=== PATIENT | male | born 1950 | race Caucasian/White ===

== ENCOUNTER 2016-10-31 23:34 | Inpatient (IN) | payer MEDICARE, OTHER ==
[~2016-10-31] VITALS: Ht 193 cm; Wt 126.9 kg
[2016-10-31 23:34] VITALS: O2SAT 100
[2016-10-31] MEDS ORDERED: ceFAZolin 2 GM PREMIX 50 ML ONE (23:41)
[2016-10-31] MEDS ORDERED: MORPHINE SULFATE 8 MG/ML INJ ONE (23:41)
[2016-10-31] MEDS ORDERED: ONDANSETRON HCL 4 MG/2 ML VIAL ONE (23:42)
[2016-10-31] MEDS ORDERED: ceFAZolin 2 GM PREMIX 50 ML IV STA (23:45)
[2016-10-31 23:57] LABS: I-STAT POTASSIUM 3.8 MMOL/L (3.5-4.9); I-STAT SODIUM 141 MMOL/L (138-146)
[2016-10-31 23:58] LABS: AUTOMATED NEUTROPHIL # 15.9 TH/MM3 (1.8-7.7); BASOPHIL # 0.2 TH/MM3 (0-0.2); BASOPHIL % 0.7 % (0.0-2.0); EOSINOPHIL # 0.4 TH/MM3 (0-0.4); EOSINOPHIL % 1.7 % (0.0-4.0); HEMATOCRIT 45.2 % (39.0-51.0); HEMO FLAGS DIFF FINAL; LYMPH % 21.7 % (9.0-44.0); MEAN CELL VOLUME 85.5 FL (80.0-100.0); MEAN CORPUSCULAR HGB CONC 32.8 % (32.0-36.0); MONO % 6.7 % (0.0-8.0); NEUT % 69.2 % (16.0-70.0); PLATELET COUNT 231 TH/MM3 (150-450); RED BLOOD COUNT 5.29 MIL/MM3 (4.50-5.90)
[2016-10-31] MEDS ORDERED: DIPHTH/TETANUS/ACEL PERTUSSIS (BOOSTER) 0.5 ML VIAL/PFS IM ONE (23:58)
[2016-11-01] VITALS (12 sets, daily range): BP systolic 92–152; BP diastolic 54–95; PULSE 75–97; RESP 12–26; TEMP 97.7–98.8; O2SAT 89–100
[2016-11-01] MEDS ORDERED: Post-op Orders (for Pharmacy) MISC XX ONE
[2016-11-01] MEDS ORDERED: MORPHINE SULFATE 4 MG/ML INJ IV PRN
[2016-11-01] MEDS ORDERED: SODIUM CHLORIDE 0.9% FLUSH 10 ML FLUSH IV FLUSH PRN
[2016-11-01] MEDS ORDERED: NALOXONE HCL 0.4 MG/ML AMP IV PRN
[2016-11-01] MEDS ORDERED: ONDANSETRON HCL 4 MG/2 ML VIAL IV PRN
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
[2016-11-01 00:08] LABS: APTT (PATIENT) 24.2 SEC (24.3-30.1); INTERNATIONAL NORMALIZED RATIO 0.9 RATIO; PROTHROMBIN TIME - PATIENT 10.2 SEC (9.8-11.6)
[2016-11-01] MEDS ORDERED: IOHEXOL 350 MG/ML 10 ML VIAL (for RAD DIAG) IV ONE (00:13)
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
[2016-11-01] MEDS ORDERED: LIDOCAINE 1%/EPINEPHrine 1:100,000 SOLN 20 ML VIAL INFIL ONE (01:00)
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
[2016-11-01 04:27] LABS: AUTOMATED NEUTROPHIL # 17.5 TH/MM3 (1.8-7.7); BASOPHIL % 0.2 % (0.0-2.0); EOSINOPHIL % 0.1 % (0.0-4.0); HEMATOCRIT 41.4 % (39.0-51.0); HEMO FLAGS DIFF FINAL; LYMPH % 6.4 % (9.0-44.0); LYMPHOCYTE # 1.3 TH/MM3 (1.0-4.8); MEAN CELL VOLUME 86.9 FL (80.0-100.0); MEAN CORPUSCULAR HEMOGLOBIN 27.8 PG (27.0-34.0); MONO % 10.1 % (0.0-8.0); NEUT % 83.2 % (16.0-70.0); PLATELET COUNT 214 TH/MM3 (150-450); RED BLOOD COUNT 4.77 MIL/MM3 (4.50-5.90); WHITE BLOOD COUNT 21.1 TH/MM3 (4.0-11.0)
[2016-11-01 05:01] LABS: BICARBONATE 24.8 MEQ/L (21.0-32.0); POTASSIUM 3.7 MEQ/L (3.5-5.1)
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
[2016-11-01] MEDS ORDERED: GLUCAGON 1 MG/ML VIAL OTHER PRN (08:00)
[2016-11-01] MEDS ORDERED: DEXTROSE 50% IN WATER 50 ML VIAL(D50) IV PUSH PRN (08:00)
[2016-11-01] MEDS: DOCUSATE SODIUM 100 MG CAP PO SCH ×2 (08:44→20:48)
[2016-11-01] MEDS: SODIUM CHLORIDE 0.9% FLUSH 10 ML FLUSH IV FLUSH SCH ×2 (08:44→20:48)
[2016-11-01] MEDS: LIDOCAINE HCL 5% PATCH T-DERMAL SCH (08:45)
[2016-11-01] MEDS: BACITRACIN TOP OINT 15 GM TUBE TOPICAL SCH ×2 (08:45→20:49)
[2016-11-01] MEDS: METHOCARBAMOL 500 MG TAB PO SCH ×3 (08:50→20:46)
[2016-11-01] MEDS: INSULIN NovoLIN REGULAR SUPPLEMENTAL SCALE SQ SCH ×3 (11:00→20:48)
--- NOTE | 2016-11-01 15:03 | PD.ORT.PN ---
Subjective Subjective Remarks intubated Objective Vitals Vital Signs Date Time Temp Pulse Resp B/P Pulse Ox O2 Delivery O2 Flow Rate FiO2 11/01/16 14:00 77 11/01/16 12:00 89 11/01/16 10:00 89 11/01/16 08:00 96 Nasal Cannula 2.00 Humidified 11/01/16 08:00 98.0 91 12 132/57 96 11/01/16 08:00 91 11/01/16 06:00 89 11/01/16 04:00 75 11/01/16 04:00 98.1 75 16 108/56 100 11/01/16 04:00 100 Nasal Cannula 4.00 Humidified 11/01/16 03:00 94 Nasal Cannula 4.00 Humidified 11/01/16 02:00 97.7 86 19 92/54 89 11/01/16 02:00 86 11/01/16 02:00 89 Nasal Cannula 6.00 Humidified 11/01/16 01:50 92 Nasal Cannula 2.00 10/31/16 23:34 100 21 10/31/16 23:34 100 21 I/O 10/31/16 10/31/16 10/31/16 11/01/16 11/01/16 11/01/16 07:00 15:00 23:00 07:00 15:00 23:00 Intake Total 737 ml Balance 737 ml Intake Oral 480 ml IV Total 257 ml Result Diagram: 11/01/16 0410 11/01/16 0410 Other Results Laboratory Tests Test 10/31/16 23:40 Prothrombin Time 10.2 SEC (9.8-11.6) Prothromb Time International 0.9 RATIO Ratio Imaging Last 24 hours Impressions Pelvis X-Ray 10/31/162336 Signed Impressions: Service Date/Time: Monday, October 31, 2016 23:30 - CONCLUSION: Possible left iliac wing fracture. CT scan is recommended for further evaluation if clinically indicated. Elieser Snow MD Maxillofacial CT 10/31/162336 Signed Impressions: Service Date/Time: Monday, October 31, 2016 23:54 - CONCLUSION: 1. There is no evidence of acute fracture. Elieser Snow MD Head CT 10/31/162336 Signed Impressions: Service Date/Time: Monday, October 31, 2016 23:54 - CONCLUSION: 1. No evidence of acute intracranial pathology. No masses are identified. Elieser Snow MD Chest X-Ray 10/31/162336 Signed Impressions: Service Date/Time: Monday, October 31, 2016 23:30 - CONCLUSION: 1. There is no evidence of pneumothorax. 2. Fracture left scapula left clavicle and multiple left ribs Elieser Snow MD Chest CT 10/31/162336 Signed Impressions: Service Date/Time: Tuesday, November 01, 2016 00:04 - CONCLUSION: 1. Small left pneumothorax 2. Left rib fracture, left scapula and left clavicle fracture Elieser Snow MD Cervical Spine CT 10/31/162336 Signed Impressions: Service Date/Time: Monday, October 31, 2016 23:54 - CONCLUSION: 1. Moderate degenerative changes as described above. There is no evidence of acute fracture. Elieser Snow MD Abdomen/Pelvis CT 10/31/162336 Signed Impressions: Service Date/Time: Tuesday, November 01, 2016 00:04 - CONCLUSION: 1. No evidence of acute abdominal or pelvic process. No masses are identified. Elieser Snow MD Objective Remarks intubated RLE: exfix in place. pin sites clean. toes wwp Assessment & Plan Assessment and Plan POD 2- right Hugo Deutsch Jr., MD November 01, 2016 15:03
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
[2016-11-01] MEDS: SODIUM CHLOR 0.9% 1000 ML INJ 1,000 ML IV SCH ×2 (19:59→22:27)
[2016-11-01] MEDS: MAGNESIUM HYDROXIDE SUSP 30 ML CUP PO SCH (20:48)
[2016-11-01] MEDS: REMOVE OLD LIDOCAINE PATCH T-DERMAL SCH (21:00)
[2016-11-01] MEDS: oxyCODONE/ACETAMINOPHEN 5 MG/325 MG TAB PO PRN (21:12)
--- NOTE | 2016-11-01 22:49 | EKG ---
Date Performed: 11/01/2016 Time Performed: 00:12:36 PTAGE: 89 years EKG: Sinus rhythm INCOMPLETE RIGHT BUNDLE BRANCH BLOCK LEFT ANTERIOR FASCICULAR BLOCK POSSIBLE LATERAL MYOCARDIAL INFA RCTION ABNORMAL ECG NO PREVIOUS TRACING DOCTOR: Andreas Aiken Interpretating Date/Time 11/01/2016 22:47:14
[2016-11-01] MEDS: PANTOPRAZOLE SODIUM 40 MG VIAL IV SCH ×2 (23:50)
[2016-11-02 04:15] VITALS: BP 163/95; PULSE 80; RESP 18; TEMP 96.5; O2SAT 94
[2016-11-02] MEDS: METHOCARBAMOL 500 MG TAB PO SCH ×3 (04:24→20:23)
[2016-11-02] MEDS ORDERED: [UNRECOGNIZED DRUG - CODE] (06:04)
[2016-11-02] MEDS ORDERED: DOCU1CAP39 PO (06:04)
[2016-11-02] MEDS ORDERED: MILKSUS PO (06:04)
[2016-11-02] MEDS: INSULIN NovoLIN REGULAR SUPPLEMENTAL SCALE SQ SCH ×4 (06:26→20:24)
[2016-11-02 07:35] VITALS: BP 144/78; PULSE 87; RESP 18; TEMP 96.7; O2SAT 96
[2016-11-02] MEDS: SODIUM CHLORIDE 0.9% FLUSH 10 ML FLUSH IV FLUSH SCH ×2 (08:13→20:24)
[2016-11-02] MEDS: LIDOCAINE HCL 5% PATCH T-DERMAL SCH (08:14)
[2016-11-02] MEDS: DOCUSATE SODIUM 100 MG CAP PO SCH ×2 (08:14→20:23)
[2016-11-02] MEDS: BACITRACIN TOP OINT 15 GM TUBE TOPICAL SCH ×2 (08:18→20:24)
[2016-11-02 08:43] LABS: AUTOMATED NEUTROPHIL # 7.7 TH/MM3 (1.8-7.7); BASOPHIL % 0.2 % (0.0-2.0); EOSINOPHIL % 0.5 % (0.0-4.0); HEMATOCRIT 33.3 % (39.0-51.0); HEMO FLAGS DIFF FINAL; LYMPH % 12.5 % (9.0-44.0); LYMPHOCYTE # 1.3 TH/MM3 (1.0-4.8); MEAN CELL VOLUME 84.7 FL (80.0-100.0); MEAN CORPUSCULAR HEMOGLOBIN 28.8 PG (27.0-34.0); MEAN CORPUSCULAR HGB CONC 33.9 % (32.0-36.0); MONO % 12.1 % (0.0-8.0); NEUT % 74.7 % (16.0-70.0); PLATELET COUNT 158 TH/MM3 (150-450); RED BLOOD COUNT 3.93 MIL/MM3 (4.50-5.90); RED CELL DISTRIBUTION WIDTH 14.4 % (11.6-17.2); WHITE BLOOD COUNT 10.3 TH/MM3 (4.0-11.0)
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
[2016-11-02 09:22] LABS: ALKALINE PHOSPHATASE 159 U/L (45-117); ALT (GPT) 24 U/L (12-78); ANION GAP 10 MEQ/L (5-15); AST (GOT) 31 U/L (15-37); BICARBONATE 24.2 MEQ/L (21.0-32.0); BLOOD UREA NITROGEN 33 MG/DL (7-18); CHLORIDE 103 MEQ/L (98-107); GLOMERULAR FILTRATION RATE 33 ML/MIN (>89); MAGNESIUM 2.2 MG/DL (1.5-2.5); POTASSIUM 4.4 MEQ/L (3.5-5.1); SODIUM (NA) 137 MEQ/L (136-145); TOTAL BILIRUBIN ADULT 1.2 MG/DL (0.2-1.0)
[2016-11-02 09:23] VITALS: O2SAT 98
[2016-11-02] MEDS ORDERED: OXYC1TAB63 PO (10:39)
[2016-11-02] MEDS ORDERED: SODIUM CHLOR 0.9% 1000 ML INJ 1,000 ML IV ONE (11:09)
[2016-11-02 12:00] VITALS: BP 138/70; PULSE 82; RESP 18; TEMP 97; O2SAT 96
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
[2016-11-02] MEDS ORDERED: PERC5TAB12 PO (13:12)
[2016-11-02] MEDS: SODIUM CHLOR 0.9% 1000 ML INJ 1,000 ML IV SCH ×3 (13:45→23:12)
[2016-11-02] MEDS: oxyCODONE/ACETAMINOPHEN 5 MG/325 MG TAB PO PRN (15:17)
[2016-11-02 16:00] VITALS: BP 127/72; PULSE 99; RESP 18; TEMP 97.3; O2SAT 94
[2016-11-02] MEDS: MAGNESIUM HYDROXIDE SUSP 30 ML CUP PO SCH (20:23)
[2016-11-02] MEDS: REMOVE OLD LIDOCAINE PATCH T-DERMAL SCH (20:24)
[2016-11-02 20:40] VITALS: BP 138/78; PULSE 84; RESP 17; TEMP 97.5; O2SAT 94
[2016-11-02] MEDS: PANTOPRAZOLE SODIUM 40 MG VIAL IV SCH (23:12)
[2016-11-02 23:55] LABS: BLOOD, URINE NEG (NEG); COMMENT (UR) CULT NOT INDICATED; CULTURE IF INDICATED CULT NOT INDICATED; GLUCOSE,URINE TRACE mg/dL (NEG); HYALINE CAST, URINE 1 /lpf (RARE); KETONE, URINE NEG (NEG); MUCUS URINE FEW /lpf (OCC); NITRITE,URINE NEG (NEG); PH, URINE 5.5 (5.0-8.5); SQUAMOUS EPITHELIAL CELL URINE <1 /hpf (0-5); URINE COLOR YELLOW (YELLW/STRAW)
[2016-11-02 23:56] LABS: AMPHETAMINE, URINE NEG (NEG); BARBITURATES, URINE NEG (NEG); COCAINE, URINE NEG (NEG)
[2016-11-03 00:50] VITALS: BP 154/80; PULSE 93; RESP 18; TEMP 98.1; O2SAT 93
[2016-11-03 04:00] VITALS: BP 146/79; PULSE 95; RESP 18; TEMP 98.2; O2SAT 92
[2016-11-03 05:51] LABS: HEMATOCRIT 28.2 % (39.0-51.0); MEAN CELL VOLUME 84.1 FL (80.0-100.0); MEAN CORPUSCULAR HEMOGLOBIN 30.1 PG (27.0-34.0); MEAN CORPUSCULAR HGB CONC 35.8 % (32.0-36.0); PLATELET COUNT 153 TH/MM3 (150-450); RED BLOOD COUNT 3.36 MIL/MM3 (4.50-5.90); RED CELL DISTRIBUTION WIDTH 14.2 % (11.6-17.2); REVIEW FLAG FINAL; WHITE BLOOD COUNT 9.5 TH/MM3 (4.0-11.0)
[2016-11-03] MEDS: METHOCARBAMOL 500 MG TAB PO SCH ×3 (06:08→23:00)
[2016-11-03 06:14] LABS: BICARBONATE 24.2 MEQ/L (21.0-32.0); MAGNESIUM 2.2 MG/DL (1.5-2.5); POTASSIUM 4.1 MEQ/L (3.5-5.1)
[2016-11-03] MEDS: INSULIN NovoLIN REGULAR SUPPLEMENTAL SCALE SQ SCH (07:00)
--- NOTE | 2016-11-03 07:03 | RADRPT ---
EXAM DATE/TIME: 11/03/2016 06:22 [facility] COMPARISON: CHEST SINGLE AP, November 02, 2016, 8:30. INDICATIONS : Difficulty breathing. MEDICAL HISTORY : None. SURGICAL HISTORY : None. ENCOUNTER: Initial ACUITY: 4 - 6 days PAIN SCORE: 10/10 LOCATION: Bilateral chest FINDINGS: The cardiac silhouette is enlarged in transverse diameter. The lungs are free of acute parenchymal op acity. No effusions are identified. Osseous structures are intact. CONCLUSION: Cardiomegaly. No acute cardiopulmonary disease. Elieser Snow MD on November 03, 2016 at 7:01 Board Certified Radiologist. This report was verified electronically.
[2016-11-03] MEDS: oxyCODONE/ACETAMINOPHEN 5 MG/325 MG TAB PO PRN (07:43)
[2016-11-03 08:00] VITALS: BP 164/87; PULSE 88; RESP 18; TEMP 98.3; O2SAT 95
[2016-11-03] MEDS: BACITRACIN TOP OINT 15 GM TUBE TOPICAL SCH ×2 (09:00→23:01)
[2016-11-03] MEDS: LIDOCAINE HCL 5% PATCH T-DERMAL SCH (09:00)
[2016-11-03] MEDS: DOCUSATE SODIUM 100 MG CAP PO SCH ×2 (09:00→20:04)
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
[2016-11-03 12:00] VITALS: BP 151/90; PULSE 76; RESP 18; TEMP 97.8; O2SAT 97
[2016-11-03 16:00] VITALS: BP 174/87; PULSE 71; RESP 18; TEMP 97; O2SAT 97
[2016-11-03] MEDS: REMOVE OLD LIDOCAINE PATCH T-DERMAL SCH (19:26)
[2016-11-03] MEDS: SODIUM CHLORIDE 0.9% FLUSH 10 ML FLUSH IV FLUSH SCH (20:04)
[2016-11-03] MEDS: MAGNESIUM HYDROXIDE SUSP 30 ML CUP PO SCH (20:04)
[2016-11-03 20:58] VITALS: BP 167/90; PULSE 73; RESP 18; TEMP 97.9; O2SAT 93
[2016-11-03] MEDS: SODIUM CHLOR 0.9% 1000 ML INJ 1,000 ML IV SCH (21:59)
[2016-11-03] MEDS: PANTOPRAZOLE SODIUM 40 MG VIAL IV SCH (23:00)
[2016-11-04] VITALS (7 sets, daily range): BP systolic 156–184; BP diastolic 72–95; PULSE 73–94; RESP 17–22; TEMP 96.9–99.7; O2SAT 92–99
[2016-11-04] MEDS: METHOCARBAMOL 500 MG TAB PO SCH ×3 (06:09→22:16)
[2016-11-04] MEDS: SODIUM CHLOR 0.9% 1000 ML INJ 1,000 ML IV SCH ×2 (07:59→11:01)
[2016-11-04] MEDS: LIDOCAINE HCL 5% PATCH T-DERMAL SCH (09:00)
[2016-11-04] MEDS: DOCUSATE SODIUM 100 MG CAP PO SCH (09:00)
[2016-11-04] MEDS: SODIUM CHLORIDE 0.9% FLUSH 10 ML FLUSH IV FLUSH SCH ×2 (09:00→20:19)
[2016-11-04] MEDS: BACITRACIN TOP OINT 15 GM TUBE TOPICAL SCH ×2 (10:01→20:19)
[2016-11-04] MEDS: oxyCODONE/ACETAMINOPHEN 5 MG/325 MG TAB PO PRN (10:31)
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
[2016-11-04] MEDS ORDERED: PILL SPLITTER OTHER PRN (13:30)
[2016-11-04] MEDS: KETOROLAC TROMETHAMINE 30 MG/ML (IVP) VIAL IV PUSH PRN (13:57)
[2016-11-04] MEDS: DOCUSATE SODIUM 50 MG/SENNA 8.6 MG TAB PO SCH (20:19)
[2016-11-05 00:03] VITALS: BP 166/77
[2016-11-05] MEDS: KETOROLAC TROMETHAMINE 30 MG/ML (IVP) VIAL IV PUSH PRN ×2 (02:05→08:18)
[2016-11-05 03:30] VITALS: BP 181/84; PULSE 78; RESP 18; TEMP 98.1; O2SAT 94
[2016-11-05] MEDS: METHOCARBAMOL 500 MG TAB PO SCH ×2 (06:07→14:26)
[2016-11-05 08:00] VITALS: BP 175/84; PULSE 76; RESP 17; TEMP 96.3; O2SAT 94
[2016-11-05] MEDS: SODIUM CHLORIDE 0.9% FLUSH 10 ML FLUSH IV FLUSH SCH (08:18)
[2016-11-05] MEDS: DOCUSATE SODIUM 50 MG/SENNA 8.6 MG TAB PO SCH (08:19)
[2016-11-05] MEDS: oxyCODONE/ACETAMINOPHEN 5 MG/325 MG TAB PO PRN ×2 (08:28→14:26)
[2016-11-05] MEDS ORDERED: FAMOTIDINE 20 MG TAB PO SCH (09:00)
[2016-11-05] MEDS ORDERED: PERC5TAB12 PO (11:38)
[2016-11-05 12:00] VITALS: BP 156/80; PULSE 77; RESP 18; TEMP 96.4; O2SAT 96
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
[2016-11-05] MEDS ORDERED: BACI500O2 TOPICAL (13:15)
[2016-11-05] MEDS ORDERED: KETO10 PO (13:15)
[2016-11-05] MEDS ORDERED: METH500T3 PO (13:15)
== END 2016-11-05 14:39 | disposition home or self-care (01) | DRG 183 ==
LOC: NEPI 23:34 → EDBD 11-01 00:46 → NEDA 11-01 00:46 → N03A 11-01 01:35 → N06B 11-01 18:29
PROVIDERS: ADMIT Surgery; ATTEND Surgery
PROC: 0HQ0XZZ Repair Scalp Skin, External Approach (ICD-10-PCS; principal; 2016-11-01)
PROC: 0HC0XZZ Extirpation of Matter from Scalp Skin, External Approach (ICD-10-PCS; 2016-11-01)
DX: S22.42XA Multiple fractures of ribs, left side, initial encounter for closed fracture (principal); S27.2XXA Traumatic hemopneumothorax, initial encounter; S27.321A Contusion of lung, unilateral, initial encounter; S01.01XA Laceration without foreign body of scalp, initial encounter; S42.032A Displaced fracture of lateral end of left clavicle, initial encounter for closed fracture; S42.112A Displaced fracture of body of scapula, left shoulder, initial encounter for closed fracture; S00.03XA Contusion of scalp, initial encounter; S00.81XA Abrasion of other part of head, initial encounter; S60.512A Abrasion of left hand, initial encounter; S60.511A Abrasion of right hand, initial encounter; S20.312A Abrasion of left front wall of thorax, initial encounter; S30.811A Abrasion of abdominal wall, initial encounter; S90.512A Abrasion, left ankle, initial encounter; S90.511A Abrasion, right ankle, initial encounter; V28.4XXA Motorcycle driver injured in noncollision transport accident in traffic accident, initial encounter; Y92.410 Unspecified street and highway as the place of occurrence of the external cause
CPT/HCPCS: 70450; 70486; 71010; 71260; 72125; 72170; 73000; 73010; 73100; 73120; 74177; 80048; 80053; 80307; 81001; 82435; 82565; 82947; 82948; 83735; 84132; 84295; 84520; 85025; 85027; 85384; 85610; 85730; 86850; 86900; 86901; 86920; 90471; 93005; 94150; 96374; 96375; 99291; A0431-QM-SH; A0436-QM-SH; C9113; G0390; J0690; J1885; J2270; J2405; J7030; Q9967